=== PATIENT | male | born 1970 | race Caucasian/White ===

== ENCOUNTER 2022-10-16 05:50 | Emergency (ER) | payer SELFPAY ==
[~2022-10-16] VITALS: Ht 167.6 cm; Wt 100.7 kg
[2022-10-16 05:58] VITALS: BP 170/84
--- NOTE | 2022-10-16 06:02 | NUR ---
TO LOBBY A/W BED AMBULATORY
--- NOTE | 2022-10-16 06:33 | NUR ---
SEEN AND EXAMINED BY MAGDY
[2022-10-16] MEDS ORDERED: KETOROLAC 15 MG/ML VIAL IVP ONE (06:35)
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
--- NOTE | 2022-10-16 07:50 | NUR ---
COVID, FLU, AND STREP SWAB COLLECTED
[2022-10-16] MEDS ORDERED: KETOROLAC 15 MG/ML VIAL ONE (07:51)
[2022-10-16 07:57] LABS: BASOPHILS % (AUTO) 0.4 % (0.0-2.0); EOSINOPHILS # (AUTO) 0.2 K/uL (0-0.4); EOSINOPHILS % (AUTO) 2.8 % (0.0-4.0); HEMATOCRIT 45.6 % (36-52); HEMOGLOBIN 15.9 g/dL (12.0-18.0); LYMPHOCYTES # (AUTO) 1.5 K/uL (2.0-11.5); LYMPHOCYTES % (AUTO) 17.6 % (20.5-51.1); MEAN CORPUSCULAR HEMOGLOBIN 29 pg (27-31); MEAN CORPUSCULAR HGB CONC 35 g/dL (33-37); MEAN CORPUSCULAR VOLUME 83.2 fL (80-94); MONOCYTES # (AUTO) 0.8 K/uL (0.8-1.0); MONOCYTES % (AUTO) 9.2 % (1.7-9.3); NEUTROPHILS # (AUTO) 6.1 K/uL (1.8-7.7); PLATELET COUNT (AUTO) 218 K/uL (140-450); RED BLOOD CELL COUNT(AUTO) 5.47 MIL/uL (4.20-6.10); RED CELL DISTRIBUTION WIDTH 13.7 % (11.6-13.7); WHITE BLOOD COUNT (AUTO) 8.6 K/uL (4.8-10.8)
[2022-10-16 08:40] LABS: ANION GAP 11.7 (8-16); CARBON DIOXIDE 29.1 mmol/L (21-32); POTASSIUM 3.8 mmol/L (3.5-5.1)
[2022-10-16 08:41] LABS: CREATININE 0.6 mg/dL (0.6-1.3)
--- NOTE | 2022-10-16 09:13 | NUR ---
PT BACK FROM CT
[2022-10-16] MEDS ORDERED: AMOX-1230 PO (10:48)
[2022-10-16] MEDS ORDERED: IBUP-2213 PO (10:48)
[2022-10-16 11:00] VITALS: BP 139/85
--- NOTE | 2022-10-16 11:00 | NUR ---
Patient discharged with v/s stable. Written and verbal after care instructions given and explained. Patient alert, oriented and verbalized understanding of instructions. Ambulatory with steady gait. All questions addressed prior to discharge. ID AND IV removed. Patient advised to follow up with PMD. Rx given. Patient educated on indication of medication including possible reaction and side effects. Opportunity to ask questions provided and answered.
== END 2022-10-16 11:00 | disposition home or self-care (01) ==
LOC: MED 05:50
DX: K08.89 Other specified disorders of teeth and supporting structures (principal); Z20.822 Contact with and (suspected) exposure to COVID-19; J02.9 Acute pharyngitis, unspecified; J44.9 Chronic obstructive pulmonary disease, unspecified; I10 Essential (primary) hypertension; Z79.899 Other long term (current) drug therapy
CPT/HCPCS: 36415; 70491; 80048; 85025; 85651; 86140; 87081; 87426; 87804; 96374; 99285; J1885; Q9967